=== PATIENT | female | born 1995 | race Caucasian/White ===

== ENCOUNTER 2019-01-07 18:49 | Emergency (ER) | payer OTHER ==
[~2019-01-07] VITALS: Ht 167.6 cm; Wt 113.4 kg
[2019-01-07 19:11] VITALS: BP_SYST 114
[2019-01-07 20:37] LABS: BASOPHILS % (AUTO) 0.2 % (0.0-2.0); EOSINOPHILS # (AUTO) 0.1 K/uL (0.0-0.4); EOSINOPHILS % (AUTO) 0.7 % (0.0-4.0); HEMATOCRIT 40.9 % (36-48); HEMOGLOBIN 14.2 g/dL (12.0-16.0); LYMPHOCYTES # (AUTO) 1.7 K/uL (1.0-5.5); LYMPHOCYTES % (AUTO) 14.2 % (20.5-51.5); MEAN CORPUSCULAR HEMOGLOBIN 32 pg (27-31); MEAN CORPUSCULAR HGB CONC 35 % (32-36); MEAN CORPUSCULAR VOLUME 92 fL (79.0-98.0); MONOCYTES # (AUTO) 0.5 K/uL (0.0-1.0); MONOCYTES % (AUTO) 3.9 % (1.7-9.3); NEUTROPHILS # (AUTO) 9.9 K/uL (1.8-7.7); PLATELET COUNT (AUTO) 223 K/uL (130-430); RED BLOOD CELL COUNT(AUTO) 4.47 MIL/uL (4.2-6.2); RED CELL DISTRIBUTION WIDTH 13.4 % (9.0-15.0); WHITE BLOOD COUNT (AUTO) 12.3 K/uL (4.8-10.8)
[2019-01-07 20:39] LABS: CALCIUM 8.7 mg/dL (8.4-11.0); CREATININE 0.88 mg/dL (0.55-1.30)
[2019-01-07 20:44] LABS: PROTHROMBIN TIME 9.7 SECS (9.5-12.5)
[2019-01-07 20:46] LABS: ALBUMIN 3.2 g/dL (3.4-4.8); TOTAL BILIRUBIN 0.2 mg/dL (0.0-1.0)
[2019-01-07] MEDS: MORPHINE 4 MG/ML INJ. SYRINGE IVP ONE (20:56)
[2019-01-07] MEDS: ONDANSETRON HCL 4 MG/2 ML VIAL IVP ONE (20:59)
[2019-01-07] MEDS: NACL 0.9% 1,000 ML IV ONE (21:01)
[2019-01-07 21:02] LABS: BILIRUBIN,URINE NEGATIVE (NEGATIVE); BLOOD, URINE NEGATIVE (NEGATIVE); CLARITY/URINE CLEAR (CLEAR); COLOR,URINE YELLOW (YELLOW); GLUCOSE,URINE NEGATIVE (NEGATIVE); KETONES,URINE NEGATIVE (NEGATIVE); LEUKOCYTE ESTERASE ,URINE NEGATIVE (NEGATIVE); NITRITE, URINE NEGATIVE (NEGATIVE); PROTEIN URINE NEGATIVE (NEGATIVE)
[2019-01-07 23:58] VITALS: BP_SYST 122
== END 2019-01-07 23:58 | disposition home or self-care (01) ==
LOC: SED 18:49
DX: I88.0 Nonspecific mesenteric lymphadenitis (principal)
CPT/HCPCS: 36415; 71045; 74176; 80053; 81003; 81025; 82150; 83690; 85025; 85610; 96361; 96374; 96375; 99284; J2270; J2405; J7030

== ENCOUNTER 2019-02-04 19:26 | Emergency (ER) | payer OTHER ==
[~2019-02-04] VITALS: Ht 170.2 cm; Wt 111.1 kg
[2019-02-04 19:35] VITALS: BP_SYST 145
--- NOTE | 2019-02-04 20:20 | NUR ---
Patient to [facility]. Side rails up. Report given to LEROY Guajardo
--- NOTE | 2019-02-04 20:21 | NUR ---
Patient brought in complaining of epigastric pain radiating to the back x 2 days with vomiting. Patient has history of ovarian cyst. Pain 6/. No other complaints/injuries per patient or as noted. Will continue to monitor
[2019-02-04] MEDS ORDERED: MAG HYDROX/AL HYDROX/SIMETH 30 ML, DICYCLOMINE HCL 20 MG, LIDOCAINE VISCOUS 2% 15ML (PO... PO ONE ×3 (20:30)
[2019-02-04] MEDS ORDERED: ONDANSETRON 4 MG ODT TAB PO ONE (20:30)
--- NOTE | 2019-02-04 21:27 | NUR ---
Patient given written and verbal discharge instructions and verbalizes understanding. ER MD Sanabria discussed with patient the results and treatment provided. Patient in stable condition. ID arm band removed. Rx of Pepcid, Mylanta given. Patient educated on pain management and to follow up with PMD. Pain Scale 0. Opportunity for questions provided and answered. Medication side effect fact sheet provided.
[2019-02-04 21:30] VITALS: BP_SYST 136
== END 2019-02-04 21:27 | disposition home or self-care (01) ==
LOC: SED 19:26
DX: R10.13 Epigastric pain (principal); F12.90 Cannabis use, unspecified, uncomplicated; N83.209 Unspecified ovarian cyst, unspecified side
CPT/HCPCS: 81002; 81025; 99283; J2001; Q0162